=== PATIENT | male | born 1970 | race Hispanic/Latino ===

== ENCOUNTER 2017-05-06 11:58 | Emergency (ER) | payer OTHER ==
[~2017-05-06] VITALS: Ht 165.1 cm; Wt 71.7 kg
--- NOTE | 2017-05-06 14:24 | ED MVC/FALL/TRAUMA COMPLAINT ---
History of Present Illness General Chief Complaint: Upper Extremity Injury Stated Complaint: HIT BY A STONE IN SHOULDER, SENT BY [facility] Source: patient Exam Limitations: no limitations Vital Signs & Intake/Output Vital Signs & Intake/Output ED Intake and Output 05/07 0000 05/06 1200 Intake Total 0 Output Total Balance 0 Intake, Oral 0 Patient 158 lb Weight Weight Reported by Patient Measurement Method Allergies Coded Allergies: No Known Allergies (05/06/17) Reconcile Medications Ibuprofen 800 MG TABLET 1 TAB PO TID PRN PAIN Triage Note: PT TO ED FROM [facility] FOR EVAL OF HEAD AND RIGHT SHOULDER S/P "HIT BY A ROCK AT WORK TODAY". NEUROS INTACT, SPEECH CLEAR, AMBULATORY, PT ABLE TO MOVE RIGHT SHOULDER AND ARM WITHOUT DIFFICULTY "IT JUST HURTS A LITTLE". Triage Nurses Notes Reviewed? yes Onset: Abrupt Duration: hour(s): (3), constant, continues in ED Timing: single episode today Severity: mild, moderate Severity Numbers: 4 Injuries/Fall Location: head, upper extremity Method of Injury: direct blow Loss of Consciousness: no loss of consciousness No Modifying Factors: none HPI: 46-year-old male with no past medical history presents for evaluation after a work injury. 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 The rock instead hit the patient in the back of his head and right shoulder. There was no loss of consciousness. Patient did not fall. He reports pain on the right side of the back of his head and right shoulder. The pain is mild he rates pain as a 4 out of 10. There's been no vomiting dizziness lightheadedness. Pain in the right shoulder is worse with movement. No numbness or tingling. No blood thinners. He is not taking any medicine for this pain. Past History Travel History Traveled to [place] past 21 day No Medical History Any Pertinent Medical History? see below for history Neurological: NONE EENT: NONE Cardiovascular: NONE Respiratory: NONE Gastrointestinal: NONE Hepatic: NONE Renal: NONE Musculoskeletal: NONE Psychiatric: NONE Endocrine: NONE Blood Disorders: NONE Cancer(s): NONE MANAGER [employer] RESEARCH/Reproductive: NONE Surgical History Surgical History: non-contributory Psychosocial History What is your primary language Urdu Tobacco Use: Never used ETOH Use: occasional use Illicit Drug Use: denies illicit drug use Family History Hx Contributory? No Review of Systems Review of Systems Constitutional: Reports: no symptoms. Eyes: Reports: no symptoms. Ears, Nose, Throat, Mouth: Reports: no symptoms. Respiratory: Reports: no symptoms. Cardiovascular: Reports: no symptoms. Gastrointestinal/Abdominal: Reports: no symptoms. Genitourinary: Reports: no symptoms. Musculoskeletal: Reports: see HPI, joint pain, muscle pain. Skin: Reports: no symptoms. Neurological/Psychological: Reports: headache. All Other Systems: Reviewed and Negative Physical Exam Physical Exam General Appearance: well developed/nourished, no apparent distress, alert, awake Head: atraumatic, normal appearance, no bruising swelling or abrasions noted gout lacerations. No [place] signs or raccoon eyes Eyes: Bilateral: normal appearance, PERRL, EOMI. Ears, Nose, Throat, Mouth: hearing grossly normal, moist mucous membrane Neck: normal inspection, supple, full range of motion Respiratory: normal breath sounds, chest non-tender, no respiratory distress, lungs clear Cardiovascular: regular rate/rhythm, normal peripheral pulses Peripheral Pulses: 2+ radial (R), 2+ radial (L) Gastrointestinal: soft, non-tender Back: normal inspection, normal range of motion, no vertebral tenderness Extremities: normal range of motion, there is pain to palpation around the superior scapula and acromioclavicular joint. No bruising swelling or abrasions will range of motion of the shoulder is intact with pain. No other joint swelling or pain neuro vastus supply is intact bilaterally Neurologic/Psych: no motor/sensory deficits, awake, alert, oriented x 3, normal gait, normal mood/affect Skin: intact, normal color, warm/dry Core Measures ACS in differential dx? No CVA/TIA Diagnosis No Sepsis Present: No Sepsis Focused Exam Completed? No Progress Differential Diagnosis: ext injury, ICH, spinal cord injury Plan of Care: Orders Procedure Date/time Status Durable Medical Equipment 05/06 1536 Active Patient seen and evaluated. He is here after a work injury per se with a rock in the back of his head and right shoulder. He reports pain is mildly 4 out of 10 and no blood thinners no signs of trauma CT scan of the head is negative for signs of trauma. X-rays of the right shoulder show a possible small avulsion fracture of the clavicular head. Patient denies any previous injury to the shoulder he does have some tenderness around this area. Patient was placed into a shoulder immobilizer advised him to wear this at all times. Tylenol ibuprofen and apply ice. Follow-up with orthopedics and primary care. Discussed return precautions. Workers comp paperwork filled out return with any concerns. Diagnostic Imaging: Viewed by Me: Radiology Read, CT Scan. Discussed w/RAD: Radiology Read, CT Scan. Radiology Impression: PATIENT: JENNIFER BOSTON PRESENT AGE: 46 PATIENT ACCOUNT NO: [id number] : 72 LOCATION: ER ORDERING PHYSICIAN: Keo SMITH SERVICE DATE: 05/06/17 EXAM TYPE: CAT - CT HEAD WO IV CONTRAST EXAMINATION: CT HEAD WITHOUT CONTRAST CLINICAL INFORMATION: Headache after trauma. COMPARISON: None. TECHNIQUE: Contiguous axial imaging was performed from the skull base to vertex without intravenous administration of contrast. DLP: 620.9 mGy-cm FINDINGS: There is no evidence of acute intracranial hemorrhage or territorial infarction. No abnormal mass effect or midline shift is seen. Madrigal to white matter differentiation is well preserved. No extra-axial fluid collections are identified. The ventricles are normal in size. There is no abnormal attenuation within the brain parenchyma. There are no acute osseous findings. There are no large scalp contusions or hematomas; there is mild increased density in the high parietal scalp posteriorly in the midline which is nonspecific. No associated osseous changes are seen. The mastoid air cells and visualized portions of the paranasal sinuses are well aerated. IMPRESSION: 1. There are no acute bleeds or infarcts. 2. There are no large scalp hematomas and there are no acute osseous findings. DICTATED BY: Mohan Dumont MD DATE/TIME DICTATED:05/06/171419 ENGINEERING DESIGNER:EZRA DATE/TIME TRANSCRIBED:1419 CONFIDENTIAL, DO NOT COPY WITHOUT APPROPRIATE AUTHORIZATION. < Electronically signed in Other Vendor System> , PATIENT: JENNIFER BOSTON PRESENT AGE: 46 PATIENT ACCOUNT NO: [id number] : 72 LOCATION: [facility] ORDERING PHYSICIAN: Keo SMITH SERVICE DATE: 05/06/17 EXAM TYPE: RAD - XRY-SHOULDER COMPLETE-RIGHT EXAMINATION: XR SHOULDER, RIGHT CLINICAL INFORMATION: Pain status-post injury. COMPARISON: None TECHNIQUE: AP external rotation, Grashey, scapular Y, and axillary views of the right shoulder. FINDINGS: Bony alignment and mineralization are normal. The glenohumeral joint is intact. The acromioclavicular and coracoclavicular intervals are normal. A small avulsion fragment, acute versus chronic, is seen adjacent to the clavicular head. No dislocation is seen. The soft tissue planes are unremarkable, without foreign body. There is no pneumothorax. IMPRESSION: 1. A small avulsion fragment, acute versus chronic, is seen adjacent to the right clavicular head. Please correlate clinically. 2. No dislocation or separation injury is seen. DICTATED BY: Lewis Chew MD DATE/TIME DICTATED:05/06/171515 ENGINEERING DESIGNER:EZRA DATE/TIME TRANSCRIBED:05/06/171515 CONFIDENTIAL, DO NOT COPY WITHOUT APPROPRIATE AUTHORIZATION. <Electronically signed in Other Vendor System> SIGNED BY: Lewis Chew MD 05/06/17 1526 Departure Departure Disposition: HOME OR SELF CARE Condition: Stable Clinical Impression Primary Impression: Clavicle fracture Qualifiers: Encounter type: initial encounter Clavicle location: lateral end Fracture type: closed Fracture alignment: nondisplaced Laterality: right Qualified Code: S42.034A - Nondisplaced fracture of lateral end of right clavicle, initial encounter for closed fracture Referrals: Nacho NUNEZ,Raul Bañuelos Patient Has No Primary Care Dr (PCP/Family) Additional Instructions: Rest, avoid heavy lifting bending or excessive physical activity. Wear shoulder immobilizer. Tylenol ibuprofen as needed for pain. Apply ice 15-20 minutes every few hours. Follow-up with YOUr primary care doctor and orthopedic doctor within the next week. Monitor symptoms return with any concerns. Departure Forms: Customer Survey General Discharge Information Prescriptions: Current Visit Scripts Ibuprofen 1 TAB PO TID PRN PAIN #30 TAB
--- NOTE | 2017-05-06 14:27 | CT SCAN REPORT ---
EXAMINATION: CT HEAD WITHOUT CONTRAST CLINICAL INFORMATION: Headache after trauma. COMPARISON: None. TECHNIQUE: Contiguous axial imaging was performed from the skull base to vertex without intravenous administration of contrast. DLP: 620.9 mGy-cm FINDINGS: There is no evidence of acute intracranial hemorrhage or territorial infarction. No abnormal mass effect or midline shift is seen. Madrigal to white matter differentiation is well preserved. No extra-axial fluid collections are identified. The ventricles are normal in size. There is no abnormal attenuation within the brain parenchyma. There are no acute osseous findings. There are no large scalp contusions or hematomas; there is mild increased density in the high parietal scalp posteriorly in the midline which is nonspecific. No associated osseous changes are seen. The mastoid air cells and visualized portions of the paranasal sinuses are well aerated. IMPRESSION: 1. There are no acute bleeds or infarcts. 2. There are no large scalp hematomas and there are no acute osseous findings.
--- NOTE | 2017-05-06 15:26 | RADIOLOGY REPORT ---
EXAMINATION: XR SHOULDER, RIGHT CLINICAL INFORMATION: Pain status-post injury. COMPARISON: None TECHNIQUE: AP external rotation, Grashey, scapular Y, and axillary views of the right shoulder. FINDINGS: Bony alignment and mineralization are normal. The glenohumeral joint is intact. The acromioclavicular and coracoclavicular intervals are normal. A small avulsion fragment, acute versus chronic, is seen adjacent to the clavicular head. No dislocation is seen. The soft tissue planes are unremarkable, without foreign body. There is no pneumothorax. IMPRESSION: 1. A small avulsion fragment, acute versus chronic, is seen adjacent to the right clavicular head. Please correlate clinically. 2. No dislocation or separation injury is seen.
[2017-05-06 15:38] VITALS: BP 124/80
[2017-05-06] MEDS ORDERED: IBUPROFEN800 M1 PO (15:39)
== END 2017-05-06 15:47 ==
LOC: ERH 11:58
DX: S42.001A Fracture of unspecified part of right clavicle, initial encounter for closed fracture (principal); S09.90XA Unspecified injury of head, initial encounter; W20.8XXA Other cause of strike by thrown, projected or falling object, initial encounter; Y93.89 Activity, other specified; Y92.9 Unspecified place or not applicable
CPT/HCPCS: 73030-RT